=== PATIENT | male | born 1995 | race Asian ===

== ENCOUNTER 2022-03-27 15:54 | Emergency (ER) | payer OTHER ==
[~2022-03-27] VITALS: Ht 182.9 cm; Wt 65.8 kg
[2022-03-27 16:00] VITALS: TEMP 98
[2022-03-27 18:03] VITALS: BP 140/70
== END 2022-03-27 18:00 | disposition home or self-care (01) ==
LOC: ED 15:54
PROC: 2W3QX1Z Immobilization of Right Lower Leg using Splint (ICD-10-PCS; principal; 2022-03-27)
DX: Z87.828 Personal history of other (healed) physical injury and trauma (principal)
CPT/HCPCS: 99282